=== PATIENT | male | born 1970 | race Caucasian/White ===

== ENCOUNTER → 2023-04-18 06:30 | Outpatient (REF) | payer BC, SELFPAY ==
[2023-04-18 07:08] LABS: % Basophils 0.4 % (0-2); % Immature Granulocytes 0.3 % (0-0.5); % Lymphocytes 22.8 % (20.5-51.1); % Monocytes 8.1 % (1.7-9.3); % Neutrophils 64.4 % (42.2-75.2); Absolute Eosinophils 0.3 10^3/uL (0-0.7); Absolute Lymphocytes 1.7 10^3/uL (1.2-3.4); Absolute Monocytes 0.6 10^3/uL (0.1-0.6); Absolute Neutrophils 4.7 10^3/uL (1.4-6.5); Hematocrit 45.7 % (39.0-52.0); Hemoglobin 16.3 g/dL (13.0-18.0); Mean Corp Hgb Conc. 35.7 g/dL (33.0-37.0); Mean Corpuscular Hgb 31.4 pg (27.0-31.0); Mean Corpuscular Volume 88.1 fL (80.0-94.0); Mean Platelet Volume 10.7 fL (7.4-10.4); Nucleated Red Blood Cells % 0 % (-); Platelet Count 193 10^3/uL (130-400); Red Blood Cell Count 5.19 10^6/uL (4.70-6.10); Red Cell Dist. Width 12.1 % (11.5-14.5); White Blood Cell Count 7.3 10^3/uL (4.8-10.8)
[2023-04-18 07:24] LABS: Urine Albumin Negative (Neg - Trace); Urine Bilirubin Negative (Negative); Urine Character Clear (Clear); Urine Color Yellow; Urine Glucose Negative (Negative); Urine Ketone Negative (Negative); Urine Leukocyte Negative (Negative); Urine Nitrite Negative (Negative); Urine Occult Blood Negative (Negative); Urine Specific Gravity 1.015 (<1.030); Urine Urobilinogen Negative (Neg - 1+)
[2023-04-18 08:29] LABS: HDL Cholesterol 59 mg/dl; LDL Cholesterol, Calculated 69 mg/dl; Total Cholesterol 145 mg/dl (50-199); Triglyceride 89 mg/dl (10-149); Very Low Density Lipoprotein 17 mg/dl (0-30)
[2023-04-18 08:40] LABS: TSH Reflex To Free T4 4.34 uIU/ml (0.47-4.68)
[2023-04-18 09:32] LABS: Glycohemoglobin (HgbA1c) 5.9 % (4.0-5.6)
[2023-04-18 11:12] LABS: PSA, Total - Screen 2.32 ng/ml (0.0-4.0)
== END ==
LOC: REG 06:30
PROVIDERS: ATTENDING PHYSICIAN Emergency Medicine
DX: Z00.00 Encounter for general adult medical examination without abnormal findings (principal); R73.03 Prediabetes; K20.0 Eosinophilic esophagitis; Z12.5 Encounter for screening for malignant neoplasm of prostate
CPT/HCPCS: 36415; 80061; 81003; 83036; 84443; 85025; G0103

== ENCOUNTER → 2023-04-23 09:27 | Outpatient (REF) | payer BC, SELFPAY ==
[2023-04-23 20:07] LABS: ALT (SGPT) 25 U/L (0-50); AST (SGOT) 23 U/L (17-59); Albumin 4.6 g/dl (3.5-5.0); Alkaline Phosphatase 61 U/L (38-126); Blood Urea Nitrogen 19 mg/dl (9-20); Calcium 9.6 mg/dl (8.4-10.2); Carbon Dioxide 30 mmol/L (22-30); Chloride 101 mmol/L (98-107); Glucose 95 mg/dl (70-99); Potassium 4.4 mmol/L (3.5-5.1); Sodium 136 mmol/L (135-145); Total Bilirubin 1.1 mg/dl (0.2-1.3); Total Protein 7.5 g/dl (6.3-8.2); eGFR > 60.00
== END ==
LOC: CLAB 09:27
PROVIDERS: ATTENDING PHYSICIAN Emergency Medicine
DX: Z00.00 Encounter for general adult medical examination without abnormal findings (principal); K20.0 Eosinophilic esophagitis
CPT/HCPCS: 36415; 80053

== ENCOUNTER → 2023-07-08 | Outpatient (REF) | payer BC, SELFPAY | LOC: DHSLP | PROVIDERS: ATTENDING PHYSICIAN Internal Medicine; FAMILY PHYSICIAN Emergency Medicine | DX: G47.33 Obstructive sleep apnea (adult) (pediatric) (principal) | CPT/HCPCS: 95800 ==

== ENCOUNTER 2023-08-16 20:10 | Emergency (ER) | payer BC, SELFPAY ==
[2023-08-16 20:15] VITALS: BP 123/89
--- NOTE | 2023-08-16 22:46 | ED.MUSCINJ ---
HPI-Injury
<RADHA Friend - Last Filed: 08/17/23 06:25>
General
Chief Complaint: Musculo-Skeletal Complaint
Source: patient and significant other
Exam Limitations: none
Time Seen by Provider: 08/16/23 22:25
Nursing documentation reviewed up to this point in time: agreed with
History of Present Illness-Injury
Is this injury a work related problem?: No
Is pt an associate of [facility]?: No
Initial Injury comments:
52 year old male presents for evaluation of R upper back/shoulder pain and R rib pain. Pt reports that he has been experiencing pain on the right side of his neck/upper back since May. He adds that he was seen by a chiropractor on 08/11, and awoke
the next morning with exacerbation of his pain. He attributes his visit with the chiropractor to the exacerbation of his pain. Pt currently rates his pain as a 10/10, and endorses intermittent radiation into his R hand and forearm with associated
tingling. Pt has been taking Aleve 'here and there' at home for his sx, but reports minimal pain relief. He denies trauma to the affected area.
Past History
<RADHA Friend - Last Filed: 08/17/23 06:25>
Past History
ED Past Medical History: None
ED Past Surgical History: Negative Cardiac
Social History
Tobacco: Non-smoker
Alcohol: Occasional
Drug: None
Personal:
Living: with family
Employment: Employed
Family History
Family History: Other (Noncontributory)
Review of Systems
<RADHA Friend - Last Filed: 08/17/23 06:25>
Review of Systems
Allergies reviewed?: Yes
Constitutional: Reports no symptoms
EENT: Reports no symptoms
Respiratory: Reports no symptoms
Cardiac: Reports no symptoms
ABD/GI: Reports no symptoms
Musculoskeletal: Reports muscle pain, muscle stiffness and neck pain
Skin: Reports no symptoms
Neurological: Reports no symptoms
Endocrine: Reports no symptoms
Phy Exam
<ST RonnaAL - Last Filed: 08/17/23 06:25>
General Physical Exam
General Presentation: well appearing
General age: appears stated age
General Skin: warm
General Habitus: normal
General Mental: alert
General Hydration: appears well hydrated
Cardiovascular Exam
Cardiovascular Exam: regular rate/rhythm
Pulmonary Exam
Pulmonary Exam: lungs clear and no respiratory distress
Neurological Exam
Neurological Exam: alert and oriented x3
Musculoskeletal Exam
Musculoskeletal Exam: neck pain and neuro vasc intact
Injury Course
<ST RonnaAL - Last Filed: 08/17/23 06:25>
Orders/Labs/Results
Orders:
Orders
08/16/23 20:19
Electrocardiogram (*1) Urgent
Reason for Study: Other
Other Reason for Exam: chest pain
CR Ribs-right 3 Vw W/pa Chest* Urgent
Comment:
Reason For Exam: pain
CR Shoulder - Right Min 2 View Urgent
Comment:
Reason For Exam: pain
08/16/23 20:21
EKG- Treatment ONCE
08/16/23 22:51
Cyclobenzaprine HCl [Flexeril] 10 mg PO NOW STA
Ketorolac [Toradol] 60 mg IM NOW STA
<Susan August DO - Last Filed: 08/17/23 00:37>
Orders/Labs/Results
Orders:
Orders
08/16/23 20:19
Electrocardiogram (*1) Urgent
Reason for Study: Other
Other Reason for Exam: chest pain
CR Ribs-right 3 Vw W/pa Chest* Urgent
Comment:
Reason For Exam: pain
CR Shoulder - Right Min 2 View Urgent
Comment:
Reason For Exam: pain
08/16/23 20:21
EKG- Treatment ONCE
08/16/23 22:51
Cyclobenzaprine HCl [Flexeril] 10 mg PO NOW STA
Ketorolac [Toradol] 60 mg IM NOW STA
<RADHA Friend - Last Filed: 08/17/23 06:25>
MDM/Problems Addressed
Differential Diagnosis Includes:
paracervical strain, shoulder dislocation
MDM/Problems Addressed:
Cyclobenzaprine HCl [Flexeril] 10 mg PO
Ketorolac [Toradol] 60 mg IM
<Susan August DO - Last Filed: 08/17/23 00:37>
*Radiology
Radiology exam reviewed: radiology read reviewed
*Pulse Oximetry
Patient hypoxic: no
*EKG
Interpreted by ED Provider?: Yes
Interpretation: normal
Comparison EKG: no comparison EKG present
Rate: bradycardiac
Rhythm: sinus
[place]: normal axis
Interval: normal interval
QRS Pattern: normal QRS
Ischemia: no ischemia
*Critical Care Note
Total Time (30-74mins, 75-104mins- exclusive of procedures): Not Applicable
<RADHA Friend - Last Filed: 08/17/23 06:25>
Update Note
Update Note:
Pt given Cyclobenzaprine HCl [Flexeril] 10 mg PO and Ketorolac [Toradol] 60 mg IM, now reporting pain as a 2/10.
ED Attending Note
<RADHA Friend - Last Filed: 08/17/23 06:25>
-
Portions of this chart may have been created with voice recognition software.� Occasional wrong word or��sound alike� substitutions may have occurred due to the inherent limitations of voice recognition software.
<Susan August DO - Last Filed: 08/17/23 00:37>
ED Attending Note
Patient seen and examined by attending physician: Yes
I performed the substantive portion of visit, reviewed & personally made and approve the management plan that is documented in note by myself or BENOIT.: Yes
I performed a history and physical exam of patient and discussed management with resident, I reviewed resident's note and agree with documented findings and plan of care.: Yes
ED Attending Note:
This is a 52-year-old gentleman who has history of GERD, hiatal hernia maintained on Protonix. History of obstructive sleep apnea who complains of posterior neck pain that began May of this year. No insightful injury.
He began seeing a chiropractor last week for his neck pain and thus far has undergone 3 treatments with last adjustment on August 11. Although admits to moderate but temporary relief of pain after Chiropractor treatment he awoke the following
morning, August 12 with increased right posterior neck pain that radiates to his right posterior shoulder, right scapular region with occasional radiation down his right arm.
He denies weakness but does admit to occasional tingling of his right fourth and fifth digits. Right posterior neck pain is much worse with rotation of his neck and has been aggravated with upper arm activities, raising his arm above his head. He
denies headache, no chest pain, no coughing or shortness of breath, no dizziness or lightheadedness, no nausea nor vomiting, no abdominal pain.
He has been taking Aleve, 1 tablet sporadically with no significant relief.
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
GENERAL: Alert , in no apparent distress. 52-year-old gentleman appears his stated age, awake and alert, pleasant, appears in no acute distress. Sitting in a chair in exam room, preferentially holding his right elbow flexed at 90 degrees, arm
resting across his abdomen with right shoulder raised.
EYE: pupils equal and reactive. anicteric
NECK: Supple, no midline bony tenderness, mild tenderness right mid to distal paracervical musculature. There is moderately restricted right rotation, moderately restricted left sidebending. No meningismus, no significant adenopathy. There is
mild tenderness right superior trapezius musculature.
ENT: posterior pharynx is clear, oral mucosa is moist. No rhinorrhea.
CARDIAC: Regular rate and rhythm. no murmur.
LUNGS: Clear breath sounds bilaterally, no acute respiratory distress, no wheezes/rales/rhonchi. No palpable chest wall tenderness.
ABDOMEN: Soft, nondistended, without focal tenderness
NEUROLOGICAL: Alert and oriented x3, no focal neuro deficits. Motor strength is 5/5 bilaterally. Gross sensation is intact. Gait is bautista and steady.
SKIN: Warm and dry, normal color, skin intact. No rash.
MUSCULOSKELETAL: No C/C/E. peripheral pulses are full and equal b/l. No tenderness about the right shoulder nor upper arm. Full shoulder range of motion without difficulty.
PSYCH: Normal and appropriate interaction.
History and exam most consistent with musculoskeletal neck pain with intermittent right upper extremity radicular pain. There is no focal neurologic deficits.
No history of fever, no meningismus, no history of instrumentation, previous surgeries, IV drug abuse.
Pain is clearly reproducible with range of motion/rotation of neck�appears musculoskeletal. Less likely ACS. EKG is unremarkable showing sinus bradycardia, otherwise within normal limits.
Right shoulder, right ribs and chest x-ray are all unremarkable.
He reports no trauma.
Recommend NSAIDs if GI tolerable. Will trial dose of IM Toradol and will give a dose of Flexeril as well for muscle spasm.
08/17/2023 0036 AM
Patient feeling markedly improved after medication. Eager to be discharged to home.
Will prescribe a short course of diclofenac for as needed pain as well as a short course of Flexeril.
Recommend he temporarily increase pantoprazole to twice daily dosing while taking diclofenac.
Local moist heat, rest and prompt follow-up with PCP for recheck.
Discharge Plan
Departure
Patient Disposition: Home (Routine Discharge)
Date of Disposition: 08/17/23
Time of Disposition: 00:33
Patient with high blood pressure during this ER visit?: No
Condition: Good
Discharge Problem:
Cervical myofascial strain
Instructions: Cervical Muscle Strain
Prescriptions:
New
cyclobenzaprine 10 mg tablet
10 mg PO TIDPRN PRN (Reason: muscle spasm) Qty: 20 0RF
diclofenac sodium 75 mg tablet,delayed release (DR/EC)
75 mg PO BID PRN (Reason: pain) Qty: 30 0RF
No Action
pantoprazole 40 MG tablet,delayed release (DR/EC)
40 mg PO BID
Referrals:
Ольга Cat MD [Family Provider] - Call in 1-3 days for appt
Interventions
Interventions:
*Risk Screen - Suicide Last Done: 08/16/23 20:15
*General Assessment Last Done: 08/16/23 20:15
*Neglect/Abuse Screening Last Done: 08/16/23 20:15
*Nursing Disposition Last Done: 08/17/23 00:48
ED-Musculoskeletal Assessment Last Done: 08/16/23 21:06
Discharge Date and Time
Discharge Date/Time: 08/17/23 00:49
Print Language: [id number]
[2023-08-16] MEDS: FLEXERIL 10 MG PO (23:13)
[2023-08-16] MEDS: TORADOL 60 MG IM (23:13)
[2023-08-16 23:26] VITALS: BP 132/66
[2023-08-17 00:48] VITALS: BP 132/66
== END 2023-08-17 00:49 | disposition home or self-care (01) ==
LOC: EMR 20:10
PROVIDERS: EMERGENCY PHYSICIAN Emergency Medicine; FAMILY PHYSICIAN Emergency Medicine
DX: S16.1XXA Strain of muscle, fascia and tendon at neck level, initial encounter (principal); X58.XXXA Exposure to other specified factors, initial encounter
CPT/HCPCS: 99283; 96372; 71101; 73030; 93005

== ENCOUNTER 2023-09-16 19:10 | Outpatient (RCR) | payer BC, SELFPAY | END 2023-09-16 23:59 | disposition home or self-care (01) | LOC: RPT 19:10 | PROVIDERS: ATTENDING PHYSICIAN Orthopaedic Surgery; FAMILY PHYSICIAN Emergency Medicine | DX: M54.2 Cervicalgia (principal); Z73.6 Limitation of activities due to disability | CPT/HCPCS: 97110; 97140; 97163 ==

== ENCOUNTER 2023-09-26 17:46 | Outpatient (RCR) | payer BC, SELFPAY | END 2023-09-26 23:59 | disposition home or self-care (01) | LOC: RPT 17:46 | PROVIDERS: ATTENDING PHYSICIAN Orthopaedic Surgery; FAMILY PHYSICIAN Emergency Medicine | DX: M54.2 Cervicalgia (principal); Z73.6 Limitation of activities due to disability | CPT/HCPCS: 97010; 97110; 97112; 97140 ==

== ENCOUNTER → 2023-10-02 19:26 | Outpatient (REF) | payer BC, SELFPAY | LOC: MRI 19:26 | PROVIDERS: ATTENDING PHYSICIAN Orthopaedic Surgery; FAMILY PHYSICIAN Emergency Medicine | DX: M54.2 Cervicalgia (principal); M54.12 Radiculopathy, cervical region | CPT/HCPCS: 72141 ==

== ENCOUNTER → 2023-12-17 20:01 | Outpatient (REF) | payer BC, SELFPAY | LOC: MRI 3T 20:01 | PROVIDERS: ATTENDING PHYSICIAN Physician Assistant Surgical; FAMILY PHYSICIAN Emergency Medicine | DX: M25.562 Pain in left knee (principal) | CPT/HCPCS: 73721 ==

== ENCOUNTER 2024-01-24 06:21 | Day surgery (SDC) | payer BC, SELFPAY ==
[2024-01-17 12:10] VITALS: BMI 29.1
[2024-01-24] VITALS (9 sets, daily range): BP systolic 93–114; BP diastolic 59–79; BMI 29.1
[2024-01-24] MEDS: TYLENOL 1000 MG PO (12:19)
[2024-01-24] MEDS: CELEBREX 200 MG PO (12:20)
[2024-01-24] MEDS: ROXICODONE 5 MG PO (15:17)
== END 2024-01-24 15:29 | disposition home or self-care (01) ==
LOC: SDS 06:21
PROVIDERS: ATTENDING PHYSICIAN Orthopaedic Surgery; FAMILY PHYSICIAN Emergency Medicine
DX: S83.242A Other tear of medial meniscus, current injury, left knee, initial encounter (principal); X58.XXXA Exposure to other specified factors, initial encounter
CPT/HCPCS: 29881; 93005

== ENCOUNTER → 2024-05-04 06:45 | Outpatient (REF) | payer BC, SELFPAY ==
[2024-05-04 08:17] LABS: Blood Urea Nitrogen 21 mg/dl (9-20); Calcium 9.4 mg/dl (8.4-10.2); Carbon Dioxide 30 mmol/L (22-30); Chloride 103 mmol/L (98-107); Glucose 100 mg/dl (70-99); Potassium 4.8 mmol/L (3.5-5.1); Sodium 139 mmol/L (135-145); eGFR > 60.00
== END ==
LOC: REG 06:45
PROVIDERS: ATTENDING PHYSICIAN Emergency Medicine
DX: R73.03 Prediabetes (principal)
CPT/HCPCS: 36415; 80048; 83036

== ENCOUNTER 2024-05-22 06:23 | Day surgery (SDC) | payer BC, SELFPAY | END 2024-05-22 13:56 | disposition home or self-care (01) | LOC: GI 06:23 | PROVIDERS: ATTENDING PHYSICIAN Internal Medicine Gastroenterology | DX: R12 Heartburn (principal); K31.7 Polyp of stomach and duodenum; K44.9 Diaphragmatic hernia without obstruction or gangrene; K20.0 Eosinophilic esophagitis; K31.89 Other diseases of stomach and duodenum; K29.50 Unspecified chronic gastritis without bleeding | CPT/HCPCS: 43239; 88305; 88342 ==

== ENCOUNTER → 2024-06-05 06:49 | Outpatient (REF) | payer BC, SELFPAY ==
[2024-06-05 08:40] LABS: HDL Cholesterol 57 mg/dl; LDL Cholesterol, Calculated 86 mg/dl; Total Cholesterol 159 mg/dl (50-199); Triglyceride 84 mg/dl (10-149); Very Low Density Lipoprotein 16 mg/dl (0-30)
== END ==
LOC: REG 06:49
PROVIDERS: ATTENDING PHYSICIAN Emergency Medicine
DX: Z00.00 Encounter for general adult medical examination without abnormal findings (principal)
CPT/HCPCS: 36415; 80061

== ENCOUNTER 2024-06-10 17:03 | Outpatient (RCR) | payer BC, SELFPAY | END 2024-06-10 23:59 | disposition home or self-care (01) | LOC: RPT 17:03 | PROVIDERS: ATTENDING PHYSICIAN Orthopaedic Surgery; FAMILY PHYSICIAN Emergency Medicine | DX: M62.89 Other specified disorders of muscle (principal); M25.562 Pain in left knee; Z98.890 Other specified postprocedural states; Z73.6 Limitation of activities due to disability | CPT/HCPCS: 97010; 97110; 97140; 97161 ==

== ENCOUNTER 2024-06-25 18:00 | Outpatient (RCR) | payer BC, SELFPAY | END 2024-06-25 23:59 | disposition home or self-care (01) | LOC: RPT 18:00 | PROVIDERS: ATTENDING PHYSICIAN Orthopaedic Surgery; FAMILY PHYSICIAN Emergency Medicine | DX: Z47.89 Encounter for other orthopedic aftercare (principal); M62.89 Other specified disorders of muscle; Z98.890 Other specified postprocedural states; M25.562 Pain in left knee; Z73.6 Limitation of activities due to disability; M62.81 Muscle weakness (generalized) | CPT/HCPCS: 97110; 97140 ==

== ENCOUNTER → 2024-11-19 07:39 | Outpatient (REF) | payer BC, SELFPAY ==
[2024-11-19 08:48] LABS: Calcium 9.4 mg/dl (8.4-10.2); Carbon Dioxide 29 mmol/L (22-30); Chloride 103 mmol/L (98-107); Glucose 108 mg/dl (70-99); Potassium 4.5 mmol/L (3.5-5.1); Sodium 138 mmol/L (135-145); eGFR > 60.00
[2024-11-19 08:58] LABS: Blood Urea Nitrogen 26 mg/dl (9-20)
[2024-11-19 10:11] LABS: Glycohemoglobin (HgbA1c) 5.5 % (4.0-5.6)
[2024-11-19 13:00] LABS: PSA, Total - Screen 1.92 ng/ml (0.0-4.0)
== END ==
LOC: REG 07:39
PROVIDERS: ATTENDING PHYSICIAN Emergency Medicine
DX: R73.03 Prediabetes (principal); Z12.5 Encounter for screening for malignant neoplasm of prostate
CPT/HCPCS: 36415; 80048; 83036; G0103